=== PATIENT | female | born 1965 | race African-American/Black ===

== ENCOUNTER → 2016-10-04 | Outpatient (CLI) | payer BC ==
[2015-11-03 17:30] VITALS: BP 117/78
[~2016-10-04] MED LIST: CONTRAST GIVEN MC PRN; CYCL10TA2 PO; IOHEXOL 300 MG/ML 75 ML VIAL IV ONE; NAPR500T PO
--- NOTE | 2016-10-04 11:35 | RAD ---
EXAM: CT OF THE CHEST WITH INTRAVENOUS CONTRAST. HISTORY: Pericardial effusion, chronic obstructive pulmonary disease. TECHNIQUE: Computed tomography of the chest was performed after the intravenous administration of 75 mL Omnipaque 300. COMPARISON: None. FINDINGS: Images of the upper abdomen reveal cholecystectomy changes. Bone windows reveal no suspicious lesions. Bilateral inferior hilar lymph nodes are mildly prominent and not pathologically enlarged measuring 8 mm and less. There is a small pericardial effusion. No pericardial mass or thickening is appreciable. There is no pleural effusion. The heart is not enlarged. Coronary atherosclerotic calcifications are noted. There is a common origin of the left common carotid and brachiocephalic arteries. There is a proximal origin of the left vertebral artery from the left subclavian artery. Centrilobular emphysema is moderate to severe on the right greater than left. There are bullous changes in the right apex with individual lobules measuring up to 5 cm. IMPRESSION: 1. Moderate to severe centrilobular emphysema with bullous changes in the right apex. 2. Small pericardial effusion. 3. Small bilateral inferior hilar lymph nodes are nonspecific and may be reactive. Follow-up could be performed if there is persistent concern. *One or more of the following individualized dose reduction techniques were utilized for this examination: 1. Automated exposure control. 2. Adjustment of the mA and/or kV according to patient size. 3. Use of iterative reconstruction technique.
== END | disposition home or self-care (01) ==
LOC: CT 09:54
PROVIDERS: ATTEND Specialist
DX: R06.02 Shortness of breath (principal); J43.8 Other emphysema; F30.9 Manic episode, unspecified
CPT/HCPCS: 71260; Q9967

== ENCOUNTER 2016-11-24 11:08 | Emergency (ER) | payer BC ==
[~2016-11-24] VITALS: Ht 162.6 cm; Wt 59.0 kg
[~2016-11-24 11:08] MED LIST changes: -CONTRAST GIVEN MC PRN; -IOHEXOL 300 MG/ML 75 ML VIAL IV ONE
[2016-11-24 12:46] LABS: BASO % 1 % (0-3); EOS % 1 % (0-3); HEMATOCRIT 41.6 % (36.0-47.0); HEMOGLOBIN 13.4 g/dL (12.0-15.5); LYMPH # 1.5 x10^3/uL (1.0-4.8); LYMPH % 26 % (24-48); MEAN CORPUSCULAR HEMOGLOBIN 28 pg (25-35); MEAN CORPUSCULAR HGB CONC 32 g/dL (31-37); MEAN CORPUSCULAR VOLUME 88 fL (79-100); MONO % 10 % (0-9); NEUT % 63 % (31-73); PLATELET COUNT 227 x10^3/uL (140-400); RED BLOOD COUNT 4.74 x10^6/uL (3.50-5.40); RED CELL DISTRIBUTION WIDTH 14.4 % (11.5-14.5); WHITE BLOOD COUNT 5.9 x10^3/uL (4.0-11.0)
[2016-11-24 12:53] LABS: CALCIUM 9.1 mg/dL (8.5-10.1); CREATININE 0.6 mg/dL (0.6-1.0); GFR 128.6; POTASSIUM 4.6 mmol/L (3.5-5.1)
[2016-11-24 12:57] LABS: ALBUMIN 3.6 g/dL (3.4-5.0); ALBUMIN/GLOBULIN RATIO 0.7 (1.0-1.7); TOTAL BILIRUBIN 0.3 mg/dL (0.2-1.0); TOTAL PROTEIN 8.8 g/dL (6.4-8.2)
[2016-11-24] MEDS ORDERED: IV NORMAL SALINE 1000ML BAG 1,000 ML IV SCH (13:00)
[2016-11-24] MEDS ORDERED: ONDANSETRON PF 4 MG/2 ML VIAL. IV ONE (13:00)
[2016-11-24] MEDS: HYDROmorphone 2 MG/ML VIAL IV/SQ PRN ×2 (13:04→14:07)
[2016-11-24 13:36] LABS: OBC FLU VALID
[2016-11-24 13:55] LABS: BILIRUBIN,URINE NEGATIVE (NEG); GLUCOSE,URINE NEGATIVE (NEG); NITRITE,URINE NEGATIVE (NEG); PROTEIN,URINE NEGATIVE (NEG-TRACE); UROBILINOGEN,URINE 0.2 mg/dL (0.2 mg/dL)
[2016-11-24 14:10] LABS: BACTERIA,URINE FEW /HPF (0-FEW); RBC,URINE 0 /HPF (0-2); SQUAMOUS EPITHELIAL CELL,UR FEW /LPF; WBC,URINE OCC /HPF (0-4)
[2016-11-24] MEDS ORDERED: IOHEXOL 300 MG/ML 75 ML VIAL IV ONE ×2 (14:15)
[2016-11-24] MEDS ORDERED: CONTRAST GIVEN MC PRN (14:30)
[2016-11-24] MEDS ORDERED: IOHEXOL 300 MG/ML 75 ML VIAL ONE (14:34)
--- NOTE | 2016-11-24 15:09 | RAD ---
CT of the abdomen and pelvis with contrast, 11/24/2016: History: Lower abdominal pain with nausea, vomiting and diarrhea Multidetector CT imaging was performed following an IV bolus injection of iodinated contrast material. No oral contrast material was given at the request of the ordering physician. There is mild linear atelectasis or scarring in the lung bases. The gallbladder is surgically absent. No hepatic mass or bile duct dilatation is evident. No pancreatic abnormality is seen. The spleen is of normal size. No renal abnormality is detected. There is mild aortoiliac calcific plaquing without evidence of aneurysm. No abdominal or pelvic adenopathy is seen. There is poor separation of the bowel loops due to a paucity of intra-abdominal fat in this patient. There is a 3 cm rounded cystic structure along the left posterolateral margin of the uterus. This is likely of ovarian origin. The bowel loops are not dilated. The appendix is reportedly surgically absent. No free air is identified in the abdomen. IMPRESSION: 1. Small left adnexal cystic structure, most likely an ovarian cyst. 2. No acute abdominal or pelvic abnormality is detected. PQRS Compliance Statement: One or more of the following individualized dose reduction techniques were utilized for this examination: 1. Automated exposure control 2. Adjustment of the mA and/or kV according to patient size 3. Use of iterative reconstruction technique
[2016-11-24 15:30] VITALS: BP 113/67
[2016-11-24] MEDS ORDERED: HYDR-2758 PO (15:36)
[2016-11-24] MEDS ORDERED: ONDA4TAB10 SL (15:36)
--- NOTE | 2016-11-24 15:36 | PHYS DOC ---
Past Medical History Past Medical History: Asthma Past Surgical History: Appendectomy, Cholecystectomy, Tubal ligation Alcohol Use: None Drug Use: Marijuana Adult General Chief Complaint Chief Complaint: NAUSEA/VOMITING/DIARRHA HPI HPI 51-year-old female presenting to the emergency department today with generalized muscle aches pains lower abdominal pain. This started with the last 3 or 4 days. It comes and goes. No associated symptoms. The pain is mild nonradiating and without alleviating factors. She endorses nausea with one episode of nonbilious nonbloody vomiting. She also reports loose stools. She has a headache cough. She denies vaginal discharge changes, foul-smelling discharge, recent exposure to STDs. Review of systems is negative for chest pain shortness of breath fevers chills or blood in stool. All other review of systems is negative unless otherwise noted in history of present illness. ED course: 51-year-old female presenting to the emergency Department generalized body aches and abdominal pain. Vital signs unremarkable. Pertinent physical examination:Soft nontender abdomen without rebound tenderness or guarding present. Negative McBurneys point. Negative Gentile sign. No ecchymosis present. Otherwise the remainder the exam is unremarkable. The patient was given IV fluids nausea and pain medication. CT the abdomen pelvis along with blood work obtained which were unremarkable. Negative test. Negative influenza testing. The patient was then discharged home in stable condition to follow up with their primary care physician over the next 2-3 days. They were to return if their symptoms worsened or if they were concerned for any reason. [id number] discharge instructions and return precautions were given. Patient' s questions were answered to their satisfaction. Patient is comfortable plan. Review of Systems Review of Systems SEE ABOVE. Current Medications Current Medications Current Medications Medications (Trade) Dose Ordered Sig/Carlos Alberto Start Time Stop Time Status Last Admin Dose Admin Hydromorphone HCl (Dilaudid) 0.5 mg PRN Q15MIN PRN 11/24/16 12:45 11/24/16 15:59 DC 11/24/16 14:07 0.5 MG Info (Do NOT chart on this entry -- for MONITORING) 1 each PRN DAILY PRN 11/24/16 14:30 11/24/16 15:59 DC Iohexol (Omnipaque 300 Mg/ml) 75 ml STK-MED ONCE 11/24/16 14:34 11/24/16 14:35 DC Ondansetron HCl (Zofran) 4 mg 1X ONCE 11/24/16 13:00 11/24/16 13:01 DC 11/24/16 13:03 4 MG Sodium Chloride 1,000 ml @ 1,000 mls/hr Q1H 11/24/16 13:00 11/24/16 13:59 DC 11/24/16 13:03 1,000 MLS/HR Allergies Allergies Allergies Coded Allergies Type Severity Reaction Last Updated Verified Penicillins Allergy Intermediate Rash 11/03/15 Yes Tetracyclines Allergy Intermediate Rash 11/03/15 Yes Physical Exam Physical Exam SEE ABOVE Constitutional: Well developed, well nourished, no acute distress, non-toxic appearance. [] HENT: Normocephalic, atraumatic, bilateral external ears normal, oropharynx moist, no oral exudates, nose normal. [] Eyes: PERRLA, EOMI, conjunctiva normal, no discharge. [] Neck: Normal range of motion, no tenderness, supple, no stridor. [] Cardiovascular:Heart rate regular rhythm, no murmur [] Lungs & Thorax: Bilateral breath sounds clear to auscultation [] Abdomen: Bowel sounds normal, soft, no tenderness, no masses, no pulsatile masses. [] Skin: Warm, dry, no erythema, no rash. [] Back: No tenderness, no CVA tenderness. [] Extremities: No tenderness, no cyanosis, no clubbing, ROM intact, no edema. [] Neurologic: Alert and oriented X 3, normal motor function, normal sensory function, no focal deficits noted. [] Psychologic: Affect normal, judgement normal, mood normal. [] Current Patient Data Vital Signs Vital Signs Date Time Temp Pulse Resp B/P (MAP) Pulse Ox O2 Delivery O2 Flow Rate FiO2 11/24/16 15:30 76 20 113/67 (82) 94 Room Air 11/24/16 11:15 98.1 98.1 Lab Values Laboratory Tests Test 11/24/16 10:27 11/24/16 10:42 11/24/16 11:18 11/24/16 12:10 POC Urine HCG, Qualitative Hcg negative (Negative) Influenza Type A Antigen Negative (NEGATIVE) Influenza Type B Antigen Negative (NEGATIVE) Urine Collection Type Void Urine Color Yellow Urine Clarity Clear Urine pH 6.0 Urine Specific Downey <=1.005 Urine Protein Negative mg/dL (NEG-TRACE) Urine Glucose (UA) Negative mg/dL (NEG) Urine Ketones (Stick) Negative mg/dL (NEG) Urine Blood Negative (NEG) Urine Nitrite Negative (NEG) Urine Bilirubin Negative (NEG) Urine Urobilinogen Dipstick 0.2 mg/dL (0.2 mg/dL) Urine Leukocyte Esterase Negative (NEG) Urine RBC 0 /HPF (0-2) Urine WBC Occ /HPF (0-4) Urine Squamous Epithelial Cells Few /LPF Urine Bacteria Few /HPF (0-FEW) White Blood Count 5.9 x10^3/uL (4.0-11.0) Red Blood Count 4.74 x10^6/uL (3.50-5.40) Hemoglobin 13.4 g/dL (12.0-15.5) Hematocrit 41.6 % (36.0-47.0) Mean Corpuscular Volume 88 fL (79-100) Mean Corpuscular Hemoglobin 28 pg (25-35) Mean Corpuscular Hemoglobin Concent 32 g/dL (31-37) Red Cell Distribution Width 14.4 % (11.5-14.5) Platelet Count 227 x10^3/uL (140-400) Neutrophils (%) (Auto) 63 % (31-73) Lymphocytes (%) (Auto) 26 % (24-48) Monocytes (%) (Auto) 10 % (0-9) H Eosinophils (%) (Auto) 1 % (0-3) Basophils (%) (Auto) 1 % (0-3) Neutrophils # (Auto) 3.7 x10^3uL (1.8-7.7) Lymphocytes # (Auto) 1.5 x10^3/uL (1.0-4.8) Monocytes # (Auto) 0.6 x10^3/uL (0.0-1.1) Eosinophils # (Auto) 0.1 x10^3/uL (0.0-0.7) Basophils # (Auto) 0.0 x10^3/uL (0.0-0.2) Sodium Level 137 mmol/L (136-145) Potassium Level 4.6 mmol/L (3.5-5.1) Chloride Level 101 mmol/L (98-107) Carbon Dioxide Level 30 mmol/L (21-32) Anion Gap 6 (6-14) Blood Urea Nitrogen 7 mg/dL (7-20) Creatinine 0.6 mg/dL (0.6-1.0) Estimated GFR (Cockcroft-Gault) 128.6 BUN/Creatinine Ratio 12 (6-20) Glucose Level 102 mg/dL (70-99) H Calcium Level 9.1 mg/dL (8.5-10.1) Total Bilirubin 0.3 mg/dL (0.2-1.0) Aspartate Amino Transferase (AST) 56 U/L (15-37) H Alanine Aminotransferase (ALT) 95 U/L (14-59) H Alkaline Phosphatase 64 U/L (46-116) Total Protein 8.8 g/dL (6.4-8.2) H Albumin 3.6 g/dL (3.4-5.0) Albumin/Globulin Ratio 0.7 (1.0-1.7) L Lipase 136 U/L (73-393) Laboratory Tests 11/24/16 12:10 Laboratory Tests 11/24/16 12:10 EKG EKG [] Radiology/Procedures Radiology/Procedures [] Course & Med Decision Making Course & Med Decision Making Pertinent Labs and Imaging studies reviewed. (See chart for details) [] Dragon Disclaimer Dragon Disclaimer This electronic medical record was generated, in whole or in part, using a voice recognition dictation system. Departure Departure Impression: Primary Impression: Nausea and vomiting Disposition: 01 HOME, SELF-CARE Condition: STABLE Referrals: NO PCP (PCP) LUCITA CHIU MD Patient Instructions: Abdominal Pain, Nausea and Vomiting, [id number] Additional Instructions: Thank you for allowing us to participate in your care today. Followup with your primary care physician in 3 days if your symptoms do not improve. Call your Primary Doctor tomorrow and inform them of your visit today. If you do not have a primary care provider you can ask for a list of our primary care providers. Return to the emergency department you have any new or concerning findings. This should be evaluated by the primary care physician and any necessary consulting services for continued management within a few days after discharge. Return to emergency room if you have any new or concerning symptoms including but not limited to fever, chills, nausea, vomiting, intractable pain, any new rashes, chest pain, shortness of air, uncontrolled bleeding, difficulty breathing, and/or vision loss. You may have been prescribed medication that can change in your level of thinking and ability to operate machinery. These medications include hydrocodone and Ativan. Also, Benadryl has been known to do this as well. Be sure to check with your pharmacist and ask if the medications you've prescribed can affect your level of consciousness. I recommend not operating heavy machinery or driving while on medication such as these. Scripts Ondansetron (ZOFRAN ODT) 4 Mg Tab.rapdis 1 TAB SL PRN Q8HRS Y for NAUSEA, #6 TAB Prov: NGOZI DOUGLASS MD 11/24/16 Hydrocodone Bit/Acetaminophen (HYDROCODONE-APAP 5-325 ) 1 Each Tablet 1 TAB PO PRN Q6HRS Y for PAIN, #15 TAB 0 Refills Be careful as this medication may cause you to be drowsy or tired. Do not drive on this medication. Prov: NGOZI DOUGLASS MD 11/24/16 NGOZI DOUGLASS MD Nov 24, 2016 15:36
== END 2016-11-24 15:56 | disposition home or self-care (01) ==
LOC: ER 11:08
DX: R11.2 Nausea with vomiting, unspecified (principal); R51 Headache; R10.30 Lower abdominal pain, unspecified; M79.1 Myalgia; R19.7 Diarrhea, unspecified; J45.909 Unspecified asthma, uncomplicated; Z88.0 Allergy status to penicillin; Z90.49 Acquired absence of other specified parts of digestive tract; Z88.1 Allergy status to other antibiotic agents
CPT/HCPCS: 36415; 74177; 80053; 81001; 81025; 83690; 85025; 87804; 96361; 96374; 96375; 96376; 99285; J1170; J2405; J7030; Q9967

== ENCOUNTER → 2016-12-14 | Outpatient (CLI) | payer BC ==
[2016-11-24 15:30] VITALS: BP 113/67
[~2016-12-14] MED LIST changes: +HYDR-2758 PO; +ONDA4TAB10 SL
--- NOTE | 2016-12-14 09:32 | KCIC ---
PELVIS W/TV Clinical Indication: Follow-up 3 cm cystic structure on the left seen on CT. Comparison: None. TECHNIQUE: Real-time ultrasound imaging of the pelvis using transabdominal and transvaginal window is performed. Findings: Transabdominal window is limited, the adnexa are obscured due to overlying bowel gas. Limited visualization of the uterus. Uterus is anteverted. Uterus measures 7.2 x 3.5 x 4 cm. No focal abnormality. The endometrial stripe measures 5 mm, normal. The right ovary measures 1.9 x 1.6 x 2.3 cm. There is normal blood flow in the ovaries. Left ovary measures 4 x 3.2 x 3 cm. There is a left ovary functional cyst measuring 3.4 x 2.6 x 2.9 cm. There is trace cul-de-sac free fluid. IMPRESSION: 1. Left ovary functional cyst. Normal blood flow in the ovaries. 2. Trace cul-de-sac free fluid, probably physiologic. Electronically signed by: Javad Ambrocio MD (12/14/2016 9:28 AM) [id number]
== END | disposition home or self-care (01) ==
LOC: KCIC US 07:39
PROVIDERS: ATTEND Obstetrics & Gynecology
DX: N83.202 Unspecified ovarian cyst, left side (principal)
CPT/HCPCS: 76830; 76856